=== PATIENT | male | born 1980 | race African-American/Black ===

== ENCOUNTER 2018-08-14 15:05 | Emergency (ER) | payer SELFPAY ==
[~2018-08-14] VITALS: Ht 180.3 cm; Wt 100.0 kg
[2018-08-14 15:33] VITALS: BP 149/94
[2018-08-14] MEDS ORDERED: KETOROLAC TROMETHAMINE 10 MG TABLET PO ONE (16:00)
== END 2018-08-14 16:12 | disposition home or self-care (01) ==
LOC: EMS 15:06
DX: G89.29 Other chronic pain (principal); M79.652 Pain in left thigh; I10 Essential (primary) hypertension

== ENCOUNTER 2020-12-22 13:10 | Emergency (ER) | payer MEDICAID ==
[~2020-12-22] VITALS: Ht 180.3 cm; Wt 88.6 kg
[2020-12-22 16:05] VITALS: BP 130/79
== END 2020-12-22 16:14 | disposition home or self-care (01) ==
LOC: EMS 13:15
DX: K40.90 Unilateral inguinal hernia, without obstruction or gangrene, not specified as recurrent (principal); I86.1 Scrotal varices
CPT/HCPCS: 76870; 99284; Z7502